=== PATIENT | male | born 1960 | race Caucasian/White ===

== ENCOUNTER → 2019-02-10 | Emergency (ER) | payer OTHER ==
[~2019-02-10] MED LIST: CEPH500T7 PO; CEPHALEXIN 250 MG PO ONE; DIPHTH/TETANUS/ACEL. PERTUSSIS IM ONE; IOPAMIDOL 76% 100 ML INFUS BTL 100 ML ONE; KETOROLAC 30 MG/ML VIAL IVP ONE; LIDO/EPI 1% MDV 1:100,000 20ML INFIL ONE; NS(*) 0.9% 1000 ML BAG 1,000 ML IV ONE; ONDANSETRON 4 MG/2 ML VIAL IVP ONE; ORPHENADRINE 60MG/2ML INJ IVP ONE; OXYC-865 PO; [UNRECOGNIZED DRUG - OTHER] PO ONE; ceFAZolin(*) 2GM/D5W 50ML 50 ML IVPB ONE; fentaNYL CITR 100 MCG/2 ML AMP IVP ONE; oxyCODONE/ACETAMIN 5/325MG TH 2 TAB/BOTTLE PO ONE
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
[2019-02-10 13:49] LABS: PLATELET COUNT, AUTOMATED 183 K/uL (150-450)
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
[2019-02-10 18:13] VITALS: BP 136/78
== END ==
LOC: ER 13:21
DX: S41.112A Laceration without foreign body of left upper arm, initial encounter (principal); S01.81XA Laceration without foreign body of other part of head, initial encounter; H11.32 Conjunctival hemorrhage, left eye; S00.83XA Contusion of other part of head, initial encounter; S22.32XA Fracture of one rib, left side, initial encounter for closed fracture; V48.0XXA Car driver injured in noncollision transport accident in nontraffic accident, initial encounter
CPT/HCPCS: 12002; 12014; 70450; 71045; 71260; 72125; 72128; 72131; 72170; 73030; 73080; 73090; 74177; 80320; 85025; 85610; 85730; 86850; 86900; 86901; 90471; 90715; 93005; 96365; 96375; 99285; J1885; J2360; J2405; J3010; J7030; Q9967; 82040; 82247; 82310; 82374; 82435; 82565; 82947; 84075; 84132; 84155; 84295; 84450; 84460; 84520; J0690